=== PATIENT | male | born 1950 | race Caucasian/White ===

== ENCOUNTER 2025-03-26 14:48 | Emergency (ER) | payer BC, MEDICARE ==
[~2025-03-26] VITALS: Ht 165.1 cm; Wt 68.0 kg
[2025-03-26 15:41] LABS: APPEARANCE,URINE CLEAR (CLEAR); BLOOD, URINE NEGATIVE Ery/uL (NEGATIVE); LEUKOCYTE ESTERASE ,URINE NEGATIVE (NEGATIVE); NITRITE, URINE NEGATIVE (NEGATIVE); UGLUCOSE NEGATIVE (NEGATIVE)
[2025-03-26 15:44] LABS: ADD URINE CULTURE NO
[2025-03-26 15:57] LABS: AMPHETAMINE, URINE NEGATIVE (NEGATIVE); BARBITURATE, URINE NEGATIVE (NEGATIVE); BENZODIAZEPINE, URINE NEGATIVE (NEGATIVE); CANNABINOID, URINE NEGATIVE (NEGATIVE); COCCAINE, URINE NEGATIVE (NEGATIVE); OPIATE, URINE NEGATIVE (NEGATIVE)
[2025-03-26 16:14] LABS: PLATELET COUNT (AUTO) 281 K/uL (150-450); RED BLOOD CELL COUNT(AUTO) 4.96 MIL/uL (4.5-6.0); RED CELL DISTRIBUTION WIDTH 14.0 % (11.5-15.0); WHITE BLOOD COUNT (AUTO) 6.4 K/uL (4.3-11.0)
[2025-03-26 16:26] LABS: CALCIUM, SERUM 9.5 mg/dL (8.5-10.1); CREATININE 0.8 mg/dL (0.6-1.3); SODIUM SERUM 138 mmol/L (136-145); UREA NITROGEN, BLOOD 15 mg/dL (7-18)
[2025-03-26] MEDS ORDERED: IV NS 0.9% 250 ML IV ONE (16:32)
[2025-03-26] MEDS ORDERED: IOHEXOL-300 100 ML VIAL IV ONE (16:32)
[2025-03-26 16:41] LABS: ASPARTATE AMINOTRANSFERASE 19 U/L (15-37); TOTAL PROTEIN, SERUM 7.8 g/dL (6.4-8.2)
[2025-03-26] MEDS ORDERED: PSYL822P6 PO (17:38)
[2025-03-26 17:47] VITALS: BP 110/72; TEMP 98; O2SAT 97
== END 2025-03-26 17:48 | disposition home or self-care (01) ==
LOC: ER 15:01
DX: R15.9 Full incontinence of feces (principal); G89.29 Other chronic pain; M54.50 Low back pain, unspecified; R10.9 Unspecified abdominal pain; R41.82 Altered mental status, unspecified; R51.9 Headache, unspecified; Z20.822 Contact with and (suspected) exposure to COVID-19
CPT/HCPCS: 99285; 70450; 87426; 74177; 85025; 80048; 80076; 36415; 80143; 80307; 81001; J7050; Q9967